=== PATIENT | female | born 1995 | race Caucasian/White ===

== ENCOUNTER 2017-05-09 07:41 | Emergency (ER) | payer BC, MEDICAID ==
--- NOTE | 2017-05-09 08:07 | EDM.PDOC ---
ED HPI GENERAL MEDICAL PROBLEM - General Chief Complaint: CREDIT ASSISTANT Problem Stated Complaint: FEMALE PROBLEMS/BLEEDING Time Seen by Provider: 05/09/17 07:57 - History of Present Illness INITIAL COMMENTS - FREE TEXT/NARRATIVE: HISTORY AND PHYSICAL: History of present illness: The patient is a 21-year-old female was never been and has no gynecologic history and presents with complaints of brown vaginal spotting that started yesterday shortly after having sexual intercourse. According to the patient she had a period 2 weeks ago which was a little off in its timing and she had an irregular period 2 months prior to that. The patient says that she did not take a home test and they are not using protection. She says she usually has regular periods which are average in flow and are associated with some cramping. She says that she is currently having no pelvic pain or cramping with the spotting. She says she only sees brown blood when she wipes and she does not need to use a liner or a pad. She has no vaginal discharge. She has no flank pain dysuria or frequency no nausea no vomiting and no abdominal pain. She has recently relocated here and needs referral for gynecology. Patient states she is concerned because it wasn't red blood like a period and it was more brown and she was worried. She had no pain with intercourse yesterday and she is eating and drinking normally Review of systems: As per history of present illness and below otherwise all systems reviewed and negative. Past medical history: As per history of present illness and as reviewed below otherwise noncontributory. Surgical history: As per history of present illness and as reviewed below otherwise noncontributory. Social history: No reported history of drug or alcohol abuse. Family history: As per history of present illness and as reviewed below otherwise noncontributory. Physical exam: Gen.: Well-developed well-nourished female who is nontoxic and vital signs have been noted by me. She moves easily without distress HEENT: Atraumatic, normocephalic, negative for conjunctival pallor or scleral icterus, mucous membranes moist, throat clear, neck supple, nontender, trachea midline. Lungs: Clear to auscultation, breath sounds equal bilaterally, chest nontender. Heart: S1S2, regular rate and rhythm no overt murmurs Abdomen: Soft, nondistended, nontender. Negative for masses or hepatosplenomegaly. Negative for costovertebral tenderness. Pelvis: Stable nontender. Genitourinary: Deferred. Rectal: Deferred. Extremities: Atraumatic, negative for cords or calf pain. Neurovascular unremarkable. Neuro: Awake, alert, oriented. Cranial nerves II through XII unremarkable. Cerebellum unremarkable. Motor and sensory unremarkable throughout. Exam nonfocal. Diagnostics: UCG Therapeutics: [] Impression: Metrorrhagia Definitive disposition and diagnosis as appropriate pending reevaluation and review of above. - Related Data Allergies Allergy/AdvReac Type Severity Reaction Status Date / Time amoxicillin trihydrate Allergy Hives Verified 08/17/15 11:48 [From Augmentin] potassium clavulanate Allergy Hives Verified 08/17/15 11:48 [From Augmentin] Home Meds: Home Meds . [No Known Home Meds] 08/17/15 [History] Past Medical History - Past Health History Medical/Surgical History: Denies Medical/Surgical History - Past Surgical History GI Surgical History: Reports: Cholecystectomy Social & Family History - Family History Family Medical History: Noncontributory - Tobacco Use Smoking Status *Q: Current Every Day Smoker Years of Tobacco use: 3 Packs/Tins Daily: 0.5 Used Tobacco, but Quit: No Second Hand Smoke Exposure: Yes - Recreational Drug Use Recreational Drug Use: No ED ROS GENERAL - Review of Systems Review Of Systems: ROS reveals no pertinent complaints other than HPI. ED EXAM, GENERAL - Physical Exam Exam: See Below (See dictation) Course - Vital Signs Last Recorded V/S: Last Vital Signs Temp 36.2 C 05/09/17 07:51 Pulse 74 05/09/17 09:11 Resp 18 05/09/17 09:11 BP 114/66 05/09/17 09:11 Pulse Ox 97 05/09/17 09:11 - Orders/Labs/Meds Labs: Laboratory Tests 05/09/17 Range/Units 08:40 HCG, Qual NEGATIVE (NEG) Departure - Departure Time of Disposition: :22 Disposition: Home, Self-Care 01 Condition: Good Clinical Impression: Metrorrhagia - Discharge Information Referrals: PCP,None [Primary Care Provider] - Forms: ED Department Discharge Additional Instructions: The following information is given to patients seen in the emergency department who are being discharged to home. This information is to outline your options for follow-up care. We provide all patients seen in our emergency department with a follow-up referral. The need for follow-up, as well as the timing and circumstances, are variable depending upon the specifics of your emergency department visit. If you don't have a primary care physician on staff, we will provide you with a referral. We always advise you to contact your personal physician following an emergency department visit to inform them of the circumstance of the visit and for follow-up with them and/or the need for any referrals to a consulting specialist. The emergency department will also refer you to a specialist when appropriate. This referral assures that you have the opportunity for followup care with a specialist. All of these measure are taken in an effort to provide you with optimal care, which includes your followup. Under all circumstances we always encourage you to contact your private physician who remains a resource for coordinating your care. When calling for followup care, please make the office aware that this follow-up is from your recent emergency room visit. If for any reason you are refused follow-up, please contact the [facility] emergency department at and ask to speak to the emergency department charge nurse. [facility] [address] [place] [address] [place] [id number] Please call our clinic and connect for follow-up care and evaluation as we discussed. Push fluids and rest. Return to ER as needed and as discussed.
[2017-05-09 09:11] VITALS: BP 114/66
== END 2017-05-09 09:36 | disposition home or self-care (01) ==
LOC: MW.ED 07:41
DX: N92.0 Excessive and frequent menstruation with regular cycle (principal); F17.210 Nicotine dependence, cigarettes, uncomplicated; Z90.49 Acquired absence of other specified parts of digestive tract; Z88.1 Allergy status to other antibiotic agents
CPT/HCPCS: 36415; 84703; 99282; 99284

== ENCOUNTER 2017-10-10 21:18 | Emergency (ER) | payer BC ==
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
[2017-10-10 22:23] VITALS: BP 127/73
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
== END 2017-10-10 22:18 | disposition home or self-care (01) ==
LOC: MW.ED 21:18
DX: S60.221A Contusion of right hand, initial encounter (principal); F17.210 Nicotine dependence, cigarettes, uncomplicated; Z88.1 Allergy status to other antibiotic agents; W22.8XXA Striking against or struck by other objects, initial encounter
CPT/HCPCS: 73130-26-RT; 73130-RT; 99283

== ENCOUNTER 2018-03-24 21:37 | Emergency (ER) | payer BC ==
[2018-03-24 22:01] VITALS: BP 123/67
[2018-03-24] MEDS ORDERED: Levofloxacin 500 MG Tab PO ONE (22:13)
--- NOTE | 2018-03-24 22:13 | EDM.PDOC ---
ED HPI GENERAL MEDICAL PROBLEM - General Chief Complaint: Genitourinary Problem Stated Complaint: BLOODY URINE Time Seen by Provider: 03/24/18 22:12 Source of Information: Reports: Patient - History of Present Illness INITIAL COMMENTS - FREE TEXT/NARRATIVE: HISTORY AND PHYSICAL: History of present illness: []Patient presents with urinary frequency and blood in her urine no clots passing no fever nausea vomiting chills sweats Review of systems: As per history of present illness and below otherwise all systems reviewed and negative. Past medical history: As per history of present illness and as reviewed below otherwise noncontributory. Surgical history: As per history of present illness and as reviewed below otherwise noncontributory. Social history: No reported history of drug or alcohol abuse. Family history: As per history of present illness and as reviewed below otherwise noncontributory. Physical exam: HEENT: Atraumatic, normocephalic, pupils reactive, negative for conjunctival pallor or scleral icterus, mucous membranes moist, throat clear, neck supple, nontender, trachea midline. Lungs: Clear to auscultation, breath sounds equal bilaterally, chest nontender. Heart: S1S2, regular, negative for clicks, rubs, or JVD. Abdomen: Soft, nondistended, nontender. Negative for masses or hepatosplenomegaly. Negative for costovertebral tenderness. Pelvis: Stable nontender. Genitourinary: Deferred. Rectal: Deferred. Extremities: Atraumatic, negative for cords or calf pain. Neurovascular unremarkable. Neuro: Awake, alert, oriented. Cranial nerves II through XII unremarkable. Cerebellum unremarkable. Motor and sensory unremarkable throughout. Exam nonfocal. Diagnostics: [UA hCG ] Therapeutics: [] 1 500 mg by mouth daily #10 no refill Diflucan 100 mg by mouth every other day #no refill impression: [] UTI Definitive disposition and diagnosis as appropriate pending reevaluation and review of above. lower back Pain Score (Numeric/FACES): 10 - Related Data Allergies Allergy/AdvReac Type Severity Reaction Status Date / Time amoxicillin trihydrate Allergy Hives Verified 03/24/18 21:51 [From Augmentin] potassium clavulanate Allergy Hives Verified 03/24/18 21:51 [From Augmentin] Home Meds: Home Meds . [No Known Home Meds] 01/11/16 [History] Past Medical History - Past Health History Medical/Surgical History: Denies Medical/Surgical History HEENT History: Reports: None Cardiovascular History: Reports: None Respiratory History: Reports: None Gastrointestinal History: Reports: None Genitourinary History: Reports: None STOCK SHIPPER History: Reports: None Musculoskeletal History: Reports: None Neurological History: Reports: None Psychiatric History: Reports: None Endocrine/Metabolic History: Reports: None Hematologic History: Reports: None Immunologic History: Reports: None Oncologic (Cancer) History: Reports: None Dermatologic History: Reports: None - Infectious Disease History Infectious Disease History: Reports: None - Past Surgical History Head Surgeries/Procedures: Reports: None GI Surgical History: Reports: Cholecystectomy Social & Family History - Family History Family Medical History: Noncontributory - Tobacco Use Smoking Status *Q: Current Every Day Smoker Years of Tobacco use: 6 Packs/Tins Daily: 0.5 - Caffeine Use Caffeine Use: Reports: Coffee, Soda - Recreational Drug Use Recreational Drug Use: No ED ROS GENERAL - Review of Systems Review Of Systems: See Below ED EXAM, GENERAL - Physical Exam Exam: See Below Course - Vital Signs Last Recorded V/S: Last Vital Signs Temp 97.2 F 03/24/18 21:58 Pulse 84 03/24/18 21:58 Resp 18 03/24/18 21:58 BP 123/67 03/24/18 21:58 Pulse Ox 98 03/24/18 21:58 - Orders/Labs/Meds Orders: Active Orders 24 hr Category Date Time Status CULTURE URINE [RM] Stat Lab 03/24/18 21:55 Received HCG QUALITATIVE,URINE [URCHEM] Stat Lab 03/24/18 21:55 Ordered UA W/MICROSCOPIC [URIN] Stat Lab 03/24/18 21:55 Ordered UA W/MICROSCOPIC [URIN] Stat Lab 03/24/18 21:55 Ordered Labs: Laboratory Tests 03/24/18 03/24/18 Range/Units 21:55 21:55 Urine Color YELLOW Urine Appearance SLT CLOUDY Urine pH 6.0 (5.0-8.0) Ur Specific [place] 1.025 (1.001-1.035) Urine Protein TRACE (NEGATIVE) mg/dL Urine Glucose (UA) NEGATIVE (NEGATIVE) mg/dL Urine Ketones NEGATIVE (NEGATIVE) mg/dL Urine Occult Blood LARGE H (NEGATIVE) Urine Nitrite NEGATIVE (NEGATIVE) Urine Bilirubin NEGATIVE (NEGATIVE) Urine Urobilinogen 0.2 (<2.0) EU/dL Ur Leukocyte Esterase LARGE (NEGATIVE) Urine RBC 25-30 (0-2/HPF) Urine WBC 65-70 (0-5/HPF) Ur Epithelial Cells FEW (NONE-FEW) Urine Bacteria FEW (NEGATIVE) Urine HCG, Qual NEGATIVE (NEGATIVE) Departure - Departure Time of Disposition: 22:13 Disposition: Home, Self-Care 01 Condition: Good Clinical Impression: UTI, Urinary tract infectious disease - Discharge Information Referrals: PCP,None [Primary Care Provider] - Additional Instructions: The following information is given to patients seen in the emergency department who are being discharged to home. This information is to outline your options for follow-up care. We provide all patients seen in our emergency department with a follow-up referral. The need for follow-up, as well as the timing and circumstances, are variable depending upon the specifics of your emergency department visit. If you don't have a primary care physician on staff, we will provide you with a referral. We always advise you to contact your personal physician following an emergency department visit to inform them of the circumstance of the visit and for follow-up with them and/or the need for any referrals to a consulting specialist. The emergency department will also refer you to a specialist when appropriate. This referral assures that you have the opportunity for follow-up care with a specialist. All of these measure are taken in an effort to provide you with optimal care, which includes your follow-up. Under all circumstances we always encourage you to contact your private physician who remains a resource for coordinating your care. When calling for follow-up care, please make the office aware that this follow-up is from your recent emergency room visit. If for any reason you are refused follow-up, please contact the [facility] emergency department at and asked to speak to the emergency department charge nurse. - My Orders Last 24 Hours: My Active Orders 03/24/18 21:55 CULTURE URINE [RM] Stat HCG QUALITATIVE,URINE [URCHEM] Stat UA W/MICROSCOPIC [URIN] Stat UA W/MICROSCOPIC [URIN] Stat - Assessment/Plan Last 24 Hours: My Active Orders 03/24/18 21:55 CULTURE URINE [RM] Stat HCG QUALITATIVE,URINE [URCHEM] Stat UA W/MICROSCOPIC [URIN] Stat UA W/MICROSCOPIC [URIN] Stat
== END 2018-03-24 22:26 | disposition home or self-care (01) ==
LOC: MW.ED 21:37
DX: N39.0 Urinary tract infection, site not specified (principal); R31.9 Hematuria, unspecified; F17.210 Nicotine dependence, cigarettes, uncomplicated; Z88.1 Allergy status to other antibiotic agents
CPT/HCPCS: 81001; 81025; 87086; 87088; 87186; 99283; A9270

== ENCOUNTER 2019-07-02 18:11 | Emergency (ER) | payer BC ==
[2019-07-02] MEDS ORDERED: Ondansetron 4 MG/2 ML SDV IVPUSH ONE (18:50)
[2019-07-02] MEDS ORDERED: Sodium Chloride 0.9% 1,000 ML IV ONE (18:50)
--- NOTE | 2019-07-02 18:54 | EDM.PDOC ---
ED HPI GENERAL MEDICAL PROBLEM - General Chief Complaint: Gastrointestinal Problem Stated Complaint: VOMITING Time Seen by Provider: 07/02/19 18:14 Source of Information: Reports: Patient History Limitations: Reports: No Limitations - History of Present Illness INITIAL COMMENTS - FREE TEXT/NARRATIVE: HISTORY AND PHYSICAL: History of present illness: Patient is a 23-year-old female who presents to the ED today with concern of vomiting since early this morning. Patient states every 20-30 minutes she had some vomiting and has only kept down a small amount of water today. Patient states she just had her menstrual cycle one week ago so does not believe she is . Patient states she had her gallbladder removed several years ago. Patient denies any other abdominal surgeries or any other symptoms or concerns. Patient denies fever, chills, chest pain, shortness of breath, or cough. Denies headache, neck stiff ness, change in vision, syncope, or near syncope. Denies abdominal pain, diarrhea, constipation, or dysuria. Has not noted any blood in urine or stool. Review of systems: As per history of present illness and below otherwise all systems reviewed and negative. Past medical history: As per history of present illness and as reviewed below otherwise noncontributory. Surgical history: As per history of present illness and as reviewed below otherwise noncontributory. Social history: See social history for further information Family history: As per history of present illness and as reviewed below otherwise noncontributory. Physical exam: General: Patient is alert, oriented, and in no acute distress. Patient sitting comfortably on exam table. HEENT: Atraumatic, normocephalic, pupils equal and reactive bilaterally, negative for conjunctival pallor or scleral icterus, mucous membranes moist, TMs normal bilaterally, throat clear, neck supple, nontender, trachea midline. No drooling or trismus noted. No meningeal signs. No hot potato voice noted. Lungs: Clear to auscultation, breath sounds equal bilaterally, chest nontender. Heart: S1S2, regular rate and rhythm without overt murmur Abdomen: Soft, nondistended, nontender. Negative for masses or hepatosplenomegaly. Negative for costovertebral tenderness. Pelvis: Stable nontender. Genitourinary: Deferred. Rectal: Deferred. Skin: Intact, warm, dry. No lesions or rashes noted. Extremities: Atraumatic, negative for cords or calf pain. Neurovascular unremarkable. Neuro: Awake, alert, oriented. Cranial nerves II through XII unremarkable. Cerebellum unremarkable. Motor and sensory unremarkable throughout. Exam nonfocal. Notes: Patient able to tolerate by mouth intake in the ED today. Voices understanding and is agreeable to plan of care. Denies any further questions or concerns at this time. Diagnostics: CBC, CMP, UA, urine hCG, lipase Therapeutics: Saline, Zofran Prescription: Zofran Impression: H/O Vomiting Medical screening exam Plan: 1. Take medication as prescribed. Encourage small but frequent sips of fluid to prevent dehydration. 2. You can alternate ibuprofen and Tylenol as directed for pain and discomfort. 3. Follow up with your primary care provider as discussed. Return to the ED as needed and as discussed. Definitive disposition and diagnosis as appropriate pending reevaluation and review of above. Abdomen Pain Score (Numeric/FACES): 6 - Related Data Allergies Allergy/AdvReac Type Severity Reaction Status Date / Time amoxicillin trihydrate Allergy Hives Verified 07/02/19 18:21 [From Augmentin] potassium clavulanate Allergy Hives Verified 07/02/19 18:21 [From Augmentin] Home Meds: Home Meds Ondansetron [Zofran ODT] 4 mg PO Q6H PRN #8 tab.dis 07/02/19 [Rx] Past Medical History - Past Health History Medical/Surgical History: Denies Medical/Surgical History HEENT History: Reports: None Cardiovascular History: Reports: None Respiratory History: Reports: None Gastrointestinal History: Reports: None Genitourinary History: Reports: None [employer]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 Musculoskeletal History: Reports: None Neurological History: Reports: None Psychiatric History: Reports: None Endocrine/Metabolic History: Reports: None Hematologic History: Reports: None Immunologic History: Reports: None Oncologic (Cancer) History: Reports: None Dermatologic History: Reports: None - Infectious Disease History Infectious Disease History: Reports: Chicken Pox, Mononucleosis, RSV - Past Surgical History Head Surgeries/Procedures: Reports: None GI Surgical History: Reports: Cholecystectomy Social & Family History - Family History Family Medical History: Noncontributory - Tobacco Use Smoking Status *Q: Former Smoker Used Tobacco, but Quit: Yes Month/Year Tobacco Last Used: 05/25 - Caffeine Use Caffeine Use: Reports: Coffee, Soda - Recreational Drug Use Recreational Drug Use: No ED ROS GENERAL - Review of Systems Review Of Systems: Comprehensive ROS is negative, except as noted in HPI. ED EXAM, GENERAL - Physical Exam Exam: See Below (see dictation) Course - Vital Signs Last Recorded V/S: Last Vital Signs Temp 97.3 F 07/02/19 18:19 Pulse 71 07/02/19 18:19 Resp 16 07/02/19 18:19 BP 135/80 07/02/19 18:19 Pulse Ox 94 L 07/02/19 18:19 - Orders/Labs/Meds Orders: Active Orders 24 hr Category Date Time Status Communication Order [RC] STAT Care 07/02/19 19:53 Active CULTURE URINE [RM] Stat Lab 07/02/19 19:29 Ordered Labs: Laboratory Tests 07/02/19 07/02/19 07/02/19 Range/Units 18:24 18:24 19:06 WBC 9.24 (4.0-11.0) K/uL RBC 5.03 (4.30-5.90) M/uL Hgb 15.4 (12.0-16.0) g/dL Hct 44.8 (36.0-46.0) % MCV 89.1 (80.0-98.0) fL MCH 30.6 (27.0-32.0) pg MCHC 34.4 (31.0-37.0) g/dL RDW Std Deviation 41.2 (28.0-62.0) fl RDW Coeff of Andrew 13 (11.0-15.0) % Plt Count 208 (150-400) K/uL MPV 10.10 (7.40-12.00) fL Neut % (Auto) 85.2 H (48.0-80.0) % Lymph % (Auto) 9.0 L (16.0-40.0) % Carson % (Auto) 5.4 (0.0-15.0) % Eos % (Auto) 0.3 (0.0-7.0) % Baso % (Auto) 0.1 (0.0-1.5) % Neut # (Auto) 7.9 H (1.4-5.7) K/uL Lymph # (Auto) 0.8 (0.6-2.4) K/uL Carson # (Auto) 0.5 (0.0-0.8) K/uL Eos # (Auto) 0.0 (0.0-0.7) K/uL Baso # (Auto) 0.0 (0.0-0.1) K/uL Nucleated RBC % 0.0 /100WBC Nucleated RBCs # 0 K/uL Sodium (136-145) mmol/L Potassium (3.5-5.1) mmol/L Chloride (98-107) mmol/L Carbon Dioxide (21.0-32.0) mmol/L BUN (7.0-18.0) mg/dL Creatinine (0.6-1.0) mg/dL Est Cr Clr Drug Dosing mL/min Estimated GFR (MDRD) ml/min Glucose (74-106) mg/dL Calcium (8.5-10.1) mg/dL Total Bilirubin (0.2-1.0) mg/dL AST (15-37) IU/L ALT (14-63) IU/L Alkaline Phosphatase (46-116) U/L Total Protein (6.4-8.2) g/dL Albumin (3.4-5.0) g/dL Globulin (2.6-4.0) g/dL Albumin/Globulin Ratio (0.9-1.6) Lipase (73-393) U/L Urine Color YELLOW Urine Appearance HAZY Urine pH 5.5 (5.0-8.0) Ur Specific [place] >= 1.030 (1.001-1.035) Urine Protein NEGATIVE (NEGATIVE) mg/dL Urine Glucose (UA) NEGATIVE (NEGATIVE) mg/dL Urine Ketones 15 H (NEGATIVE) mg/dL Urine Occult Blood SMALL H (NEGATIVE) Urine Nitrite NEGATIVE (NEGATIVE) Urine Bilirubin SMALL H (NEGATIVE) Urine Ictotest NEGATIVE Urine Urobilinogen 0.2 (<2.0) EU/dL Ur Leukocyte Esterase NEGATIVE (NEGATIVE) Urine RBC 1-3 (0-2/HPF) Urine WBC 0-2 (0-5/HPF) Ur Epithelial Cells MODERATE (NONE-FEW) Urine Bacteria 4+ H (NEGATIVE) Urine Mucus LIGHT (NONE-MOD) Urine HCG, Qual NEGATIVE (NEGATIVE) 07/02/19 Range/Units 19:06 WBC (4.0-11.0) K/uL RBC (4.30-5.90) M/uL Hgb (12.0-16.0) g/dL Hct (36.0-46.0) % MCV (80.0-98.0) fL MCH (27.0-32.0) pg MCHC (31.0-37.0) g/dL RDW Std Deviation (28.0-62.0) fl RDW Coeff of Andrew (11.0-15.0) % Plt Count (150-400) K/uL MPV (7.40-12.00) fL Neut % (Auto) (48.0-80.0) % Lymph % (Auto) (16.0-40.0) % Carson % (Auto) (0.0-15.0) % Eos % (Auto) (0.0-7.0) % Baso % (Auto) (0.0-1.5) % Neut # (Auto) (1.4-5.7) K/uL Lymph # (Auto) (0.6-2.4) K/uL Carson # (Auto) (0.0-0.8) K/uL Eos # (Auto) (0.0-0.7) K/uL Baso # (Auto) (0.0-0.1) K/uL Nucleated RBC % /100WBC Nucleated RBCs # K/uL Sodium 140 (136-145) mmol/L Potassium 3.8 (3.5-5.1) mmol/L Chloride 105 (98-107) mmol/L Carbon Dioxide 24.8 (21.0-32.0) mmol/L BUN 11 (7.0-18.0) mg/dL Creatinine 0.7 (0.6-1.0) mg/dL Est Cr Clr Drug Dosing 140.90 mL/min Estimated GFR (MDRD) > 60.0 ml/min Glucose 99 (74-106) mg/dL Calcium 8.6 (8.5-10.1) mg/dL Total Bilirubin 0.9 (0.2-1.0) mg/dL AST 16 (15-37) IU/L ALT 28 (14-63) IU/L Alkaline Phosphatase 68 (46-116) U/L Total Protein 7.5 (6.4-8.2) g/dL Albumin 4.2 (3.4-5.0) g/dL Globulin 3.3 (2.6-4.0) g/dL Albumin/Globulin Ratio 1.3 (0.9-1.6) Lipase 46 L (73-393) U/L Urine Color Urine Appearance Urine pH (5.0-8.0) Ur Specific [place] (1.001-1.035) Urine Protein (NEGATIVE) mg/dL Urine Glucose (UA) (NEGATIVE) mg/dL Urine Ketones (NEGATIVE) mg/dL Urine Occult Blood (NEGATIVE) Urine Nitrite (NEGATIVE) Urine Bilirubin (NEGATIVE) Urine Ictotest Urine Urobilinogen (<2.0) EU/dL Ur Leukocyte Esterase (NEGATIVE) Urine RBC (0-2/HPF) Urine WBC (0-5/HPF) Ur Epithelial Cells (NONE-FEW) Urine Bacteria (NEGATIVE) Urine Mucus (NONE-MOD) Urine HCG, Qual (NEGATIVE) Meds: Medications Discontinued Medications Generic Name Dose Route Start Last Admin Trade Name Freq PRN Reason Stop Dose Admin Sodium Chloride 1,000 mls @ 999 mls/hr 07/02/19 18:50 07/02/19 19:09 Normal Saline IV 07/02/19 19:50 999 mls/hr BOLUS ONE Administration Ondansetron HCl 4 mg 07/02/19 18:50 07/02/19 19:09 Zofran IVPUSH 07/02/19 18:51 4 mg ONETIME ONE Administration Departure - Departure Time of Disposition: 20:25 Disposition: Home, Self-Care 01 Clinical Impression: History of vomiting, Encounter for medical screening examination - Discharge Information Prescriptions: Ondansetron [Zofran ODT] 4 mg PO Q6H PRN #8 tab.dis PRN Reason: Nausea/Vomiting Referrals: PCP,None [Primary Care Provider] - Forms: ED Department Discharge Additional Instructions: The following information is given to patients seen in the emergency department who are being discharged to home. This information is to outline your options for follow-up care. We provide all patients seen in our emergency department with a follow-up referral. The need for follow-up, as well as the timing and circumstances, are variable depending upon the specifics of your emergency department visit. If you don't have a primary care physician on staff, we will provide you with a referral. We always advise you to contact your personal physician following an emergency department visit to inform them of the circumstance of the visit and for follow-up with them and/or the need for any referrals to a consulting specialist. The emergency department will also refer you to a specialist when appropriate. This referral assures that you have the opportunity for follow-up care with a specialist. All of these measure are taken in an effort to provide you with optimal care, which includes your follow-up. Under all circumstances we always encourage you to contact your private physician who remains a resource for coordinating your care. When calling for follow-up care, please make the office aware that this follow-up is from your recent emergency room visit. If for any reason you are refused follow-up, please contact the Emergency Department at and asked to speak to the emergency department charge nurse. Primary Care [address] [place] [id number] [address] 1. Take medication as prescribed. Encourage small but frequent sips of fluid to prevent dehydration. 2. You can alternate ibuprofen and Tylenol as directed for pain and discomfort. 3. Follow up with your primary care provider as discussed. Return to the ED as needed and as discussed. - My Orders Last 24 Hours: My Active Orders 07/02/19 19:29 CULTURE URINE [RM] Stat 07/02/19 19:53 Communication Order [RC] STAT - Assessment/Plan Last 24 Hours: My Active Orders 07/02/19 19:29 CULTURE URINE [RM] Stat 07/02/19 19:53 Communication Order [RC] STAT
[2019-07-02 19:41] LABS: BLOOD UREA NITROGEN,BUN 11 mg/dL (7.0-18.0); CARBON DIOXIDE,CO2 24.8 mmol/L (21.0-32.0); CHLORIDE,CL 105 mmol/L (98-107); GLUCOSE RANDOM 99 mg/dL (74-106); LIPASE 46 U/L (73-393); POTASSIUM,K 3.8 mmol/L (3.5-5.1); SODIUM,NA 140 mmol/L (136-145)
[2019-07-02 20:25] VITALS: BP 111/51; PULSE 83
== END 2019-07-02 20:40 | disposition home or self-care (01) ==
LOC: MW.ED 18:11
DX: R11.10 Vomiting, unspecified (principal); Z13.9 Encounter for screening, unspecified; Z88.1 Allergy status to other antibiotic agents; Z88.0 Allergy status to penicillin; Z87.891 Personal history of nicotine dependence
CPT/HCPCS: 80053; 81001; 81025; 83690; 85025; 96361; 96374; 99283; J2405; J7040

== ENCOUNTER 2020-10-16 12:02 | Emergency (ER) | payer SELFPAY ==
--- NOTE | 2020-10-16 12:53 | EDM.PDOC ---
ED HPI GENERAL MEDICAL PROBLEM - General Chief Complaint: Skin Complaint Stated Complaint: POSSIBLE INFECTION Time Seen by Provider: 10/16/20 12:03 Source of Information: Reports: Patient History Limitations: Reports: No Limitations - History of Present Illness INITIAL COMMENTS - FREE TEXT/NARRATIVE: HISTORY AND PHYSICAL: History of present illness: Patient is a 24-year-old female who presents to the ED today with concern of an infection of her left nipple after removing a piercing. Patient states that she had a nipple piercing for 1 year but states over the past week she has noticed increasing pain of her left nipple. Patient states that she removed the ring and noticed that underlying the piercing, the piercing got infected. Patient states there has been some pus draining from the piercing site and some redness around the piercing. Patient states that she is not breast-feeding. Denies any trauma or injury. Denies any other associated symptoms. Patient denies fever, chills, chest pain, shortness of breath, or cough. Denies headache, neck stiff ness, change in vision, syncope, or near syncope. Denies nausea, vomiting, abdominal pain, diarrhea, constipation, or dysuria. Has not noted any blood in urine or stool. Patient has been eating and drinking appropriately. Review of systems: As per history of present illness and below otherwise all systems reviewed and negative. Past medical history: As per history of present illness and as reviewed below otherwise noncontributory. Surgical history: As per history of present illness and as reviewed below otherwise noncontributory. Social history: See social history for further information Family history: As per history of present illness and as reviewed below otherwise noncontributory. Physical exam: General: Patient is alert, oriented, and in no acute distress. Patient sitting comfortably on exam table. HEENT: Atraumatic, normocephalic, pupils equal and reactive bilaterally, negative for conjunctival pallor or scleral icterus, mucous membranes moist, TMs normal bilaterally, throat clear, neck supple, nontender, trachea midline. No drooling or trismus noted. No meningeal signs. No hot potato voice noted. Lungs: Clear to auscultation, breath sounds equal bilaterally, chest nontender. Breast: The left nipple has 2 holes at the 9 o clock and 3 o clock positions consistent with piercing. The 3o clock piercing hole is erythematous and painful to palpation with a small amount of purulent drainage with expression out of the piercing hole. There is a small amount of erythema surrounding the piercing hole. No abscess noted. Heart: S1S2, regular rate and rhythm without overt murmur Abdomen: Soft, nondistended, nontender. Negative for masses or hepatosplenomegaly. Negative for costovertebral tenderness. Pelvis: Stable nontender. Genitourinary: Deferred. Rectal: Deferred. Skin: Intact, warm, dry. No lesions or rashes noted. Extremities: Atraumatic, negative for cords or calf pain. Neurovascular unremarkable. Neuro: Awake, alert, oriented. Cranial nerves II through XII unremarkable. Cerebellum unremarkable. Motor and sensory unremarkable throughout. Exam nonfocal. Notes: Signs and symptoms that were prompt return to the ED thoroughly discussed with patient. Discussed importance for follow-up with a primary care provider or woman's health provider. Voices understanding and is agreeable to plan of care. Denies any further questions or concerns at this time. Diagnostics: None Therapeutics: None Prescription: Keflex, Bactrim Impression: Infected nipple piercing, left Plan: 1. Take medication as prescribed. You can alternate ibuprofen and Tylenol as directed for pain and discomfort. 2. Follow-up with a primary care provider as discussed. Return to the ED as n eeded and as discussed. Definitive disposition and diagnosis as appropriate pending reevaluation and review of above. - Related Data Allergies Allergy/AdvReac Type Severity Reaction Status Date / Time amoxicillin trihydrate Allergy Hives Verified 10/16/20 12:18 [From Augmentin] potassium clavulanate Allergy Hives Verified 10/16/20 12:18 [From Augmentin] Home Meds: Home Meds Sulfamethoxazole/Trimethoprim [Bactrim Ds Tablet] 1 each PO BID 10 Days #20 tablet 10/16/20 [Rx] cephALEXin [Keflex] 500 mg PO BID 10 Days #20 cap 10/16/20 [Rx] Past Medical History - Past Health History Medical/Surgical History: Denies Medical/Surgical History HEENT History: Reports: None Cardiovascular History: Reports: None Respiratory History: Reports: None Gastrointestinal History: Reports: None Genitourinary History: Reports: 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 Musculoskeletal History: Reports: None Neurological History: Reports: None Psychiatric History: Reports: None Endocrine/Metabolic History: Reports: None Hematologic History: Reports: None Immunologic History: Reports: None Oncologic (Cancer) History: Reports: None Dermatologic History: Reports: None - Infectious Disease History Infectious Disease History: Reports: Chicken Pox, Mononucleosis, RSV - Past Surgical History Head Surgeries/Procedures: Reports: None GI Surgical History: Reports: Cholecystectomy Social & Family History - Family History Family Medical History: No Pertinent Family History - Tobacco Use Tobacco Use Status *Q: Current Every Day Tobacco User Years of Tobacco use: 5 Packs/Tins Daily: 0.5 - Caffeine Use Caffeine Use: Reports: Coffee - Recreational Drug Use Recreational Drug Use: No ED ROS GENERAL - Review of Systems Review Of Systems: Comprehensive ROS is negative, except as noted in HPI. ED EXAM, SKIN/RASH Exam: See Below (see dictation) Course - Vital Signs Last Recorded V/S: Last Vital Signs Temp 97.4 F 10/16/20 12:13 Pulse 63 10/16/20 13:00 Resp 18 10/16/20 12:13 BP 116/62 10/16/20 13:00 Pulse Ox 98 10/16/20 13:00 Departure - Departure Time of Disposition: 12:52 Disposition: Home, Self-Care 01 Clinical Impression: Infected piercing of trunk - Discharge Information Prescriptions: Sulfamethoxazole/Trimethoprim [Bactrim Ds Tablet] 1 each PO BID 10 Days #20 tablet cephALEXin [Keflex] 500 mg PO BID 10 Days #20 cap Instructions: Wound Infection, [id number] Referrals: PCP,None [Primary Care Provider] - Forms: ED Department Discharge Additional Instructions: The following information is given to patients seen in the emergency department who are being discharged to home. This information is to outline your options for follow-up care. We provide all patients seen in our emergency department with a follow-up referral. The need for follow-up, as well as the timing and circumstances, are variable depending upon the specifics of your emergency department visit. If you don't have a primary care physician on staff, we will provide you with a referral. We always advise you to contact your personal physician following an emergency department visit to inform them of the circumstance of the visit and for follow-up with them and/or the need for any referrals to a consulting specialist. The emergency department will also refer you to a specialist when appropriate. This referral assures that you have the opportunity for follow-up care with a specialist. All of these measure are taken in an effort to provide you with optimal care, which includes your follow-up. Under all circumstances we always encourage you to contact your private physician who remains a resource for coordinating your care. When calling for follow-up care, please make the office aware that this follow-up is from your recent emergency room visit. If for any reason you are refused follow-up, please contact the Emergency Department at and asked to speak to the emergency department charge nurse. Primary Care [address] [place] [id number] [address] 1. Take medication as prescribed. You can alternate ibuprofen and Tylenol as directed for pain and discomfort. 2. Follow-up with a primary care provider as discussed. Return to the ED as needed and as discussed. Sepsis Event Note (ED) - Evaluation Sepsis Screening Result: No Definite Risk - Focused Exam Vital Signs: Vital Signs Temp Pulse Resp BP Pulse Ox 10/16/20 13:00 63 116/62 98 10/16/20 12:13 97.4 F 74 18 131/69 97
[2020-10-16 13:00] VITALS: BP 116/62; PULSE 63
== END 2020-10-16 12:53 | disposition home or self-care (01) ==
LOC: MW.ED 12:02
DX: N61.0 Mastitis without abscess (principal); Z72.0 Tobacco use; Z88.0 Allergy status to penicillin; Z88.1 Allergy status to other antibiotic agents
CPT/HCPCS: 99283

== ENCOUNTER 2020-11-21 02:42 | Emergency (ER) | payer SELFPAY ==
[2020-11-21] MEDS ORDERED: Ondansetron 4 MG/2 ML SDV IVPUSH ONE (03:16)
[2020-11-21] MEDS ORDERED: Sodium Chloride 0.9% 1,000 ML IV ONE (03:16)
[2020-11-21] MEDS ORDERED: Pantoprazole 40 MG in Sodium Chloride 0.9% 10 ML IV ONE (03:16)
[2020-11-21] MEDS ORDERED: Sodium Chloride 0.9% 2.5 ML Syringe FLUSH PRN (03:16)
[2020-11-21 03:36] LABS: BLOOD UREA NITROGEN,BUN 10 mg/dL (7.0-18.0); CARBON DIOXIDE,CO2 20.5 mmol/L (21.0-32.0); CHLORIDE,CL 106 mmol/L (98-107); GLUCOSE RANDOM 129 mg/dL (74-106); POTASSIUM,K 3.8 mmol/L (3.5-5.1); SODIUM,NA 142 mmol/L (136-145)
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
[2020-11-21 04:42] VITALS: BP 94/60; PULSE 82
== END 2020-11-21 04:41 | disposition home or self-care (01) ==
LOC: MW.ED 02:42
DX: F10.129 Alcohol abuse with intoxication, unspecified (principal); R11.2 Nausea with vomiting, unspecified; Y90.6 Blood alcohol level of 120-199 mg/100 ml; Z88.0 Allergy status to penicillin
CPT/HCPCS: 36415; 80053; 80305; 80307; 81001; 81025; 83690; 85025; 93005; C9113; J2405; J7030; 96374; 96375; 99284-25

== ENCOUNTER 2021-10-15 17:37 | Emergency (ER) | payer SELFPAY ==
[2021-10-15] MEDS ORDERED: Sodium Chloride 0.9% 1,000 ML IV ONE ×2 (17:41→19:06)
[2021-10-15] MEDS ORDERED: Ondansetron 4 MG/2 ML SDV IVPUSH ONE (17:41)
[2021-10-15 18:07] VITALS: PULSE 78
[2021-10-15 18:20] LABS: BLOOD UREA NITROGEN,BUN 11 mg/dL (7.0-18.0); CARBON DIOXIDE,CO2 27.3 mmol/L (21.0-32.0); CHLORIDE,CL 104 mmol/L (98-107); ESTIMATED GFR > 60.0 ml/min; GLUCOSE RANDOM 101 mg/dL (74-106); LIPASE 40 U/L (73-393); POTASSIUM,K 3.5 mmol/L (3.5-5.1); SODIUM,NA 140 mmol/L (136-145)
[2021-10-15 18:39] LABS: CORONAVIRUS COVID-19 NAA NEGATIVE (NEGATIVE); INFLUENZA A NAA NEGATIVE (NEGATIVE); INFLUENZA B NAA NEGATIVE (NEGATIVE)
[2021-10-15] MEDS ORDERED: Ketorolac 30 MG/ML SDV IVPUSH ONE (19:06)
[2021-10-15] MEDS ORDERED: metroNIDAZOLE 250 MG Tab PO ONE (20:44)
[2021-10-15 21:03] VITALS: BP 123/86
== END 2021-10-15 21:00 | disposition home or self-care (01) ==
LOC: MW.ED 17:37
DX: R19.7 Diarrhea, unspecified (principal); Z88.0 Allergy status to penicillin; Z20.822 Contact with and (suspected) exposure to COVID-19
CPT/HCPCS: 0240U; 36415; 80053; 81001; 81025; 83605; 83690; 83735; 85025; 87324; 96374; 96375; 99284; A9270; J1885; J2405; J7030; 99283

== ENCOUNTER 2022-01-21 19:34 | Emergency (ER) | payer SELFPAY ==
[2022-01-21] MEDS ORDERED: Sodium Chloride 0.9% 10 ML Syringe FLUSH PRN (20:13)
[2022-01-21] MEDS ORDERED: Sodium Chloride 0.9% 2.5 ML Syringe FLUSH PRN (20:13)
[2022-01-21] MEDS ORDERED: Sodium Chloride 0.9% 1,000 ML IV ONE (20:20)
[2022-01-21 21:00] LABS: CARBON DIOXIDE,CO2 25.8 mmol/L (21.0-32.0)
[2022-01-21] MEDS ORDERED: Iopamidol 755 MG/ML 500 ML Multipack Bottle IVPUSH ONE (21:44)
[2022-01-21] MEDS ORDERED: Ketorolac 30 MG/ML SDV IVPUSH ONE (22:33)
[2022-01-22 01:41] VITALS: BP 102/61; PULSE 71
== END 2022-01-21 23:06 | disposition home or self-care (01) ==
LOC: MW.ED 19:34
DX: R59.0 Localized enlarged lymph nodes (principal); Z88.0 Allergy status to penicillin
CPT/HCPCS: 36415; 70491; 80053; 84703; 85025; 96374; 99284; J1885; J3490; J7030; Q9967

== ENCOUNTER 2022-04-15 14:22 | Emergency (ER) | payer SELFPAY ==
[2022-04-15] MEDS ORDERED: Prochlorperazine 10 MG in Sodium Chloride 0.9% 50 ML IV ONE (16:46)
[2022-04-15] MEDS ORDERED: Ketorolac 30 MG/ML SDV IVPUSH ONE (16:47)
[2022-04-15] MEDS ORDERED: Acetaminophen 325 MG Tab PO ONE (16:47)
[2022-04-15] MEDS ORDERED: diphenhydrAMINE 50 MG/ML SDV IVPUSH ONE (16:47)
[2022-04-15] MEDS ORDERED: Lactated Ringers 1,000 ML IV ONE (16:47)
[2022-04-15] MEDS ORDERED: Prochlorperazine 10 MG/2 ML SDV IVPUSH ONE (17:00)
[2022-04-15 17:08] LABS: CARBON DIOXIDE,CO2 28.7 mmol/L (21.0-32.0); POTASSIUM,K 4.1 mmol/L (3.5-5.1)
[2022-04-15 19:23] VITALS: BP 105/69; PULSE 77
== END 2022-04-15 19:24 | disposition home or self-care (01) ==
LOC: MW.ED 14:22
DX: R51.9 Headache, unspecified (principal); F17.210 Nicotine dependence, cigarettes, uncomplicated; Z88.0 Allergy status to penicillin
CPT/HCPCS: 36415; 70450; 80053; 85025; 96361; 96374; 96375; 99284; A9270; J0780; J1200; J1885; J7120

== ENCOUNTER 2023-03-01 15:19 | Emergency (ER) | payer BC ==
[2023-03-01] MEDS ORDERED: Sodium Chloride 0.9% 10 ML Syringe FLUSH PRN (15:22)
[2023-03-01] MEDS ORDERED: Sodium Chloride 0.9% 2.5 ML Syringe FLUSH PRN (15:22)
[2023-03-01 16:16] LABS: BASOPHILS PERCENT AUTO 0.2 % (0.0-1.5); EOSINOPHILS ABSOLUTE AUTO 0.1 K/uL (0.0-0.7); EOSINOPHILS PERCENT AUTO 1.1 % (0.0-7.0); HEMATOCRIT 34.8 % (36.0-46.0); HEMOGLOBIN 11.7 g/dL (12.0-16.0); LYMPHOCYTES ABSOLUTE AUTO 2.5 K/uL (0.6-2.4); LYMPHOCYTES PERCENT AUTO 23.8 % (16.0-40.0); MEAN CORPUSCULAR HEMOGLOBIN 30.1 pg (27.0-32.0); MEAN CORPUSCULAR HGB CONC 33.6 g/dL (31.0-37.0); MEAN CORPUSCULAR VOLUME 89.5 fL (80.0-98.0); MONOCYTES ABSOLUTE AUTO 0.5 K/uL (0.0-0.8); NEUTROPHILS ABSOLUTE AUTO 7.3 K/uL (1.4-5.7); NEUTROPHILS PERCENT AUTO 69.9 % (48.0-80.0); NRBC ABSOLUTE 0 K/uL; PLATELET COUNT,PLT 237 K/uL (150-400); RED BLOOD CELL COUNT 3.89 M/uL (4.30-5.90); WHITE BLOOD CELL COUNT,WBC 10.47 K/uL (4.0-11.0)
[2023-03-01 16:42] LABS: A/G RATIO 0.8 (0.9-1.6); ALANINE AMINOTRANSFERASE,ALT 18 IU/L (14-63); ALBUMIN 2.8 g/dL (3.4-5.0); ALKALINE PHOSPHATASE 76 U/L (46-116); ASPARTATE AMNIOTRANSFERASE,AST 9 IU/L (15-37); BILIRUBIN TOTAL 0.2 mg/dL (0.2-1.0); BLOOD UREA NITROGEN,BUN 6 mg/dL (7.0-18.0); C-REACTIVE PROTEIN <0.20 mg/dL (0.00-0.90); CALCIUM 8.1 mg/dL (8.5-10.1); CARBON DIOXIDE,CO2 24.3 mmol/L (21.0-32.0); CHLORIDE,CL 105 mmol/L (98-107); CREATININE 0.6 mg/dL (0.6-1.0); EST CRCL DRUG DOSING (CG) 148.49 mL/min; GLUCOSE RANDOM 112 mg/dL (74-106); MAGNESIUM 1.7 mg/dL (1.8-2.4); POTASSIUM,K 3.6 mmol/L (3.5-5.1); PROTEIN TOTAL,TP 6.4 g/dL (6.4-8.2); SODIUM,NA 138 mmol/L (136-145)
[2023-03-01 16:49] LABS: ESTIMATED GFR 127 mL/min (>60)
[2023-03-01 18:32] VITALS: BP 122/72; PULSE 78
== END 2023-03-01 18:31 | disposition home or self-care (01) ==
LOC: MW.ED 15:19
DX: O99.891 Other specified diseases and conditions complicating pregnancy (principal); H46.9 Unspecified optic neuritis; Z3A.22 22 weeks gestation of pregnancy
CPT/HCPCS: 36415; 80053; 83735; 84100; 85025; 85652; 86140; 96365; 96366; 99284; J2930; J7050; 99283

== ENCOUNTER 2023-03-02 07:00 | Emergency (ER) | payer BC ==
[2023-03-02 10:25] VITALS: BP 124/70; PULSE 80
== END 2023-03-02 10:23 | disposition home or self-care (01) ==
LOC: MW.ED 07:00
DX: H46.9 Unspecified optic neuritis (principal); Z88.0 Allergy status to penicillin; Z88.8 Allergy status to other drugs, medicaments and biological substances
CPT/HCPCS: 70540; 70551; 96365; 96366; 99284; J2930; J7050; 99283

== ENCOUNTER 2023-03-03 06:55 | Emergency (ER) | payer BC ==
[2023-03-03] MEDS ORDERED: Sodium Chloride 0.9% 10 ML Syringe FLUSH PRN (06:58)
[2023-03-03] MEDS ORDERED: Sodium Chloride 0.9% 2.5 ML Syringe FLUSH PRN (06:58)
[2023-03-03 08:47] VITALS: BP 108/64; PULSE 72
== END 2023-03-03 08:45 | disposition home or self-care (01) ==
LOC: MW.ED 06:55
DX: H46.9 Unspecified optic neuritis (principal); F17.210 Nicotine dependence, cigarettes, uncomplicated; Z88.0 Allergy status to penicillin; Z88.1 Allergy status to other antibiotic agents
CPT/HCPCS: 96365; 99283; J2930; J3490; J7050; 99284

== ENCOUNTER 2023-07-03 00:11 | Inpatient (IN) | payer BC ==
[2023-07-03] MEDS ORDERED: Butorphanol 1 MG/ML SDV IVPUSH PRN (00:22)
[2023-07-03] MEDS ORDERED: Terbutaline 1 MG/ML SDV SUBCUT PRN ×2 (00:22)
[2023-07-03] MEDS ORDERED: Tranexamic Acid IN NACL,ISO-OS 1,000 MG in Premix Bag 1 BAG IV PRN ×4 (00:22)
[2023-07-03] MEDS ORDERED: Water For Irrigation,Sterile 1,000 ML Container IRR PRN ×2 (00:22)
[2023-07-03] MEDS ORDERED: Misoprostol 25 MCG (1/4 of 100 MCG) Tab VAG PRN ×2 (00:22)
[2023-07-03] MEDS ORDERED: Oxytocin/0.9 % Sodium Chloride 30 UNIT/500 ML BAG IV SCH ×4 (00:22→00:30)
[2023-07-03] MEDS ORDERED: Carboprost Tromethamine 250 MCG/1 mL Vial IM PRN ×2 (00:22)
[2023-07-03] MEDS ORDERED: Sodium Chloride 0.9% 20 ML SDV IV PRN ×2 (00:22)
[2023-07-03] MEDS ORDERED: Misoprostol 200 MCG Tab PO PRN ×2 (00:22)
[2023-07-03] MEDS ORDERED: Methylergonovine 0.2 MG/1 ML Amp IM PRN ×2 (00:22)
[2023-07-03] MEDS ORDERED: Ondansetron 4 MG/2 ML SDV IVPUSH PRN ×2 (00:22→02:23)
[2023-07-03] MEDS ORDERED: Sodium Chloride 0.9% 10 ML Syringe FLUSH PRN ×2 (00:22)
[2023-07-03] MEDS ORDERED: Lidocaine 1% 50 ML MDV INJECT PRN ×2 (00:22)
[2023-07-03] MEDS ORDERED: Sodium Chloride 0.9% 2.5 ML Syringe FLUSH PRN ×2 (00:22)
[2023-07-03] MEDS: Lactated Ringers 1,000 ML IV SCH ×4 (00:45→19:50)
[2023-07-03 01:33] LABS: HEMATOCRIT 38.7 % (37.0-47.0); HEMOGLOBIN 13.1 g/dL (12.0-16.0); MEAN CORPUSCULAR HEMOGLOBIN 29.8 pg (28.0-32.0); MEAN CORPUSCULAR HGB CONC 33.9 g/dL (32.0-36.0); MEAN CORPUSCULAR VOLUME 88.2 fL (83.0-99.0); MEAN PLATELET VOLUME 10.9 fL (9.4-12.3); PLATELET COUNT,PLT 278 K/uL (150-400); RED BLOOD CELL COUNT 4.39 M/uL (4.10-5.30); WHITE BLOOD CELL COUNT,WBC 14.92 K/uL (3.9-11.3)
[2023-07-03] MEDS ORDERED: Phenylephrine HCl 0.5 MG/5 ML AMP IVPUSH PRN (07:13)
[2023-07-03] MEDS ORDERED: ePHEDrine 50 MG/ML SDV IVPUSH PRN ×2 (07:13)
[2023-07-03] MEDS ORDERED: Ropivacaine HCl/PF 400 MG in Premix Bag 1 BAG EPIDUR SCH (07:15)
[2023-07-03] MEDS ORDERED: dexmedeTOMIDine HCl 200 MCG/2 ML SDV ONE (11:45)
[2023-07-03] MEDS: Acetaminophen 500 MG Tab PO PRN (15:58)
[2023-07-04] MEDS: Acetaminophen 500 MG Tab PO PRN ×4 (00:24→22:08)
[2023-07-04] MEDS: Lactated Ringers 1,000 ML IV SCH (01:00)
[2023-07-04] MEDS ORDERED: Oxytocin 10 Units/1 ML SDV IM ONE (03:20)
[2023-07-04] MEDS ORDERED: Benzocaine/Menthol 20%-0.5% Spray 78 GM Cannister TOP PRN (03:36)
[2023-07-04] MEDS ORDERED: Lanolin 100% Cream 7 GM Tube TOP PRN (03:36)
[2023-07-04] MEDS ORDERED: Bisacodyl 10 MG Supp RECTAL PRN (03:36)
[2023-07-04] MEDS ORDERED: Docusate Sodium 100 MG Cap PO PRN (03:36)
[2023-07-04 04:02] LABS: PH,UMBILICAL ARTERIAL 7.212 (7.18-7.38); PH,UMBILICAL VENOUS 7.28 (7.25-7.45)
[2023-07-04] MEDS: Ibuprofen 800 MG Tab PO PRN ×3 (06:15→20:26)
[2023-07-04] MEDS: Witch Hazel Medicated Pads 40/Jar TOP PRN (06:17)
[2023-07-04 11:11] LABS: HEMATOCRIT 36.2 % (37.0-47.0); HEMOGLOBIN 12.1 g/dL (12.0-16.0)
[2023-07-04] MEDS: oxyCODONE 5 MG Tab PO PRN ×2 (13:29→18:51)
[2023-07-04 18:59] LABS: HEMATOCRIT 36.2 % (37.0-47.0); HEMOGLOBIN 12.2 g/dL (12.0-16.0)
[2023-07-05] MEDS: Ibuprofen 800 MG Tab PO PRN ×2 (02:46→10:13)
[2023-07-05] MEDS: Witch Hazel Medicated Pads 40/Jar TOP PRN (07:17)
[2023-07-05] MEDS: Acetaminophen 500 MG Tab PO PRN (07:17)
[2023-07-05 09:31] VITALS: BP 124/76; PULSE 58
== END 2023-07-05 12:18 | disposition home or self-care (01) | DRG 560 ==
LOC: MW.OBCHECK 00:11 → MW.OB 00:12 → MW.OBCHECK 00:22 → OBSVTOIN 07-04 03:09 → MW.OB 07-04 05:45
PROVIDERS: ADMIT Obstetrics & Gynecology; ATTEND Obstetrics & Gynecology
PROC: 10E0XZZ Delivery of Products of Conception, External Approach (ICD-10-PCS; principal; 2023-07-04)
PROC: 10H07YZ Insertion of Other Device into Products of Conception, Via Natural or Artificial Opening (ICD-10-PCS; 2023-07-04)
PROC: 10907ZC Drainage of Amniotic Fluid, Therapeutic from Products of Conception, Via Natural or Artificial Opening (ICD-10-PCS; 2023-07-04)
PROC: 3E0R3BZ Introduction of Anesthetic Agent into Spinal Canal, Percutaneous Approach (ICD-10-PCS; 2023-07-04)
PROC: 00HU33Z Insertion of Infusion Device into Spinal Canal, Percutaneous Approach (ICD-10-PCS; 2023-07-04)
PROC: 3E033VJ Introduction of Other Hormone into Peripheral Vein, Percutaneous Approach (ICD-10-PCS; 2023-07-04)
DX: O40.3XX0 Polyhydramnios, third trimester, not applicable or unspecified (principal); O36.63X0 Maternal care for excessive fetal growth, third trimester, not applicable or unspecified; O99.334 Smoking (tobacco) complicating childbirth; F17.210 Nicotine dependence, cigarettes, uncomplicated; D64.9 Anemia, unspecified; O99.02 Anemia complicating childbirth; O76 Abnormality in fetal heart rate and rhythm complicating labor and delivery; O69.81X0 Labor and delivery complicated by cord around neck, without compression, not applicable or unspecified; Z3A.39 39 weeks gestation of pregnancy; Z37.0 Single live birth
CPT/HCPCS: 01967; 36415; 51702; 59025; 59200; 59409; 82803; 84112; 85014; 85018; 85027; 86592; 86850; 86900; 86901; A9270-GY; J2371; J2405; J2590; J2795; J3490; J7120

== ENCOUNTER 2023-08-16 20:48 | Emergency (ER) | payer BC ==
[2023-08-16 21:44] VITALS: BP 118/71; PULSE 63
== END 2023-08-16 21:55 | disposition home or self-care (01) ==
LOC: MW.ED 20:48
DX: S60.455A Superficial foreign body of left ring finger, initial encounter (principal); F17.210 Nicotine dependence, cigarettes, uncomplicated; Z90.49 Acquired absence of other specified parts of digestive tract; Z88.0 Allergy status to penicillin; Z88.8 Allergy status to other drugs, medicaments and biological substances; Z88.1 Allergy status to other antibiotic agents; W49.04XA Ring or other jewelry causing external constriction, initial encounter
CPT/HCPCS: 99283

== ENCOUNTER 2024-08-15 23:10 | Emergency (ER) | payer BC ==
[2024-08-16 00:51] VITALS: BP 115/79; PULSE 98
[2024-08-16 01:33] LABS: CANDIDA DNA PROBE NEGATIVE (NEGATIVE); GARDNERELLA DNA PROBE NEGATIVE (NEGATIVE); TRICHOMONAS DNA PROBE NEGATIVE (NEGATIVE)
[2024-08-16 02:20] LABS: C. TRACHOMATIS BY PCR NOT DETECTED; N. GONORRHOEAE BY PCR NOT DETECTED
== END 2024-08-16 00:59 | disposition home or self-care (01) ==
LOC: MW.ED 23:10
DX: N89.8 Other specified noninflammatory disorders of vagina (principal); F17.210 Nicotine dependence, cigarettes, uncomplicated; Z90.49 Acquired absence of other specified parts of digestive tract; Z88.0 Allergy status to penicillin; Z88.8 Allergy status to other drugs, medicaments and biological substances
CPT/HCPCS: 87480; 87491; 87510; 87529; 87591; 87660; 99283